=== PATIENT | female | born 1975 ===

== ENCOUNTER 2017-08-06 10:59 | Observation (INO) | payer BC ==
--- NOTE | 2017-08-06 09:44 | History and Physical Report ---
History of Present Illness Date of examination: 08/06/17 Date of admission: 08/06/2017 Chief complaint: heavy menses History of present illness: 42y/o with a history of symptomatic uterine fibroids. She reports worsening her menses. She has experienced cramping and pain with her menses. Pelvic ultrasound demonstrates an enlarged uterus with a dominant leiomyoma measuring 7.6cm. The patient elects for definitive surgical management. 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 Social history: - Obstetrical History : 2 Para: 2 Hx # Term Pregnancies: 2 Number of Pregnancies: 0 Spontaneous Abortions: 0 Induced : 0 Number of Living Children: 2 Medications and Allergies Allergies Allergy/AdvReac Type Severity Reaction Status Date / Time ibuprofen [From Advil] Allergy Red, itchy Verified 07/30/17 16:31 skin aleive Allergy Red, itchy Uncoded 07/30/17 16:31 skin Home Medications Medication Instructions Recorded Confirmed Last Taken Type Acetaminophen [Non-Aspirin Pain 500 mg PO PRN PRN 07/30/17 08/05/17 Unknown History Relief] Review of Systems All systems: negative Genitourinary: vaginal bleeding, pelvic pain - Vital Signs Vital signs: Vital Signs Temp Pulse Resp BP 98.5 F 74 18 150/88 07/31/17 13:00 07/31/17 13:00 07/31/17 13:00 07/31/17 13:00 Temp Pulse Resp BP Pulse Ox 98.5 F 74 18 150/88 07/31/17 13:00 07/31/17 13:00 07/31/17 13:00 07/31/17 13:00 - Physical Exam Breasts: Positive: deferred Cardiovascular: Regular rate Lungs: Positive: Clear to auscultation Abdomen: Positive: normal appearance Results All other labs normal. Assessment and Plan - Patient Problems (1) Leiomyoma Status: Acute Plan to address problem: scheduled for a robotic hysterectomy and bilateral salpingectomy (2) Menorrhagia Status: Acute (3) Dysmenorrhea Status: Acute
[~2017-08-06 10:59] MED LIST: ANCEF/STERILE WATER 2 GM/20 ML 2 GM/20 ML SYRINGE IV SCH
[2017-08-06] MEDS ORDERED: NACL BACTERIOSTATIC INFILTRATI ONE (11:13)
[2017-08-06] MEDS ORDERED: XYLOCAINE MPF 2% ONE (12:32)
[2017-08-06] MEDS ORDERED: ZEMURON IV ONE (12:32)
[2017-08-06] MEDS ORDERED: DIPRIVAN 10 MG/ML IV ONE (12:33)
[2017-08-06] MEDS ORDERED: SUBLIMAZE ONE (12:33)
[2017-08-06] MEDS ORDERED: GELFOAM POWDER 1GM MM ONE ×2 (12:45→14:18)
[2017-08-06] MEDS ORDERED: THROMBIN (BOVINE) TP ONE ×2 (12:45→14:18)
[2017-08-06] MEDS ORDERED: NEOSPORIN GU IR ONE ×2 (12:46→14:18)
[2017-08-06] MEDS ORDERED: LACTATED RINGERS 1,000 ML IV SCH (13:00)
[2017-08-06] MEDS ORDERED: TRANSDERM-SCOP TD ONE (13:12)
[2017-08-06] MEDS ORDERED: DECADRON ONE (13:50)
[2017-08-06] MEDS ORDERED: ZOFRAN ONE (13:50)
[2017-08-06] MEDS ORDERED: ROBINUL ONE (14:12)
[2017-08-06] MEDS ORDERED: BLOXIVERZ ONE (14:12)
[2017-08-06] MEDS ORDERED: NACL 0.9% IR ONE ×2 (14:18)
[2017-08-06] MEDS ORDERED: ePHEDrine 50 MG/5 ML-0.9% NACL IV ONE (14:41)
[2017-08-06] MEDS ORDERED: TYLENOL PO PRN (14:58)
[2017-08-06] MEDS ORDERED: AMBIEN PO PRN (14:58)
[2017-08-06] MEDS ORDERED: NARCAN 0.4 MG/1 ML IV PRN (14:58)
[2017-08-06] MEDS ORDERED: ZOFRAN IV PRN (14:58)
[2017-08-06] MEDS ORDERED: PERCOCET 5/325 PO PRN (14:58)
[2017-08-06] MEDS ORDERED: MILK OF MAGNESIA PO PRN (14:58)
--- NOTE | 2017-08-06 14:58 | Operative Report ---
Operative Report Operative Report: Date of surgery: 08/06/2017 Preoperative diagnoses: Symptomatic uterine fibroids; menorrhagia Postoperative diagnoses: Same as above Procedure: Robotic hysterectomy; bilateral salpingectomy Surgeon: Jade Perez M.D. [employer] Specialist: Trudy Gloria Anesthesia: Gen. endotracheal anesthesia Estimated blood loss: 50 mL Pathology: Leiomyoma, uterus, cervix, bilateral tubes Indication: 42-year-old 002 with a history of symptomatic uterine fibroids. The patient reports a history of significant menorrhagia and dysmenorrhea during her menses. She has elected to undergo definitive surgical management. Procedure: The patient was taken to the operating room and given general endotracheal anesthesia without complication. She is prepped and draped in a normal sterile fashion. A bivalve speculum was placed in the patient's vagina and a single- tooth tenaculum placed on the anterior lip of the cervix. The uterus was sounded with the uterine sound. A Are You a Human uterine manipulator was placed in the bivalve speculum was then removed. Attention was then turned to the patient's abdomen where a millimeter supra umbilical skin incision was then made. A Veress needle was placed and peritoneal entry was verified water-filled syringe. Insufflation of the peritoneal cavity was performed with CO2 gas. The 12 mm trocar was then placed under direct visualization. An additional 8 mm trocar was placed on the patient's left and right lateral side just opposite of the supraumbilical trocar. An additional 5 mm right lateral trocar was then placed as the accessory port. The patient was then placed in steep Trendelenburg. The da Albaro robot was then engaged. A fenestrated forcep was placed in arm 2 and a vessel sealer was placed in arm 1. The surgeon then transferred to the surgical console. General survey of the patient's abdomen and pelvis revealed an enlarged fibroid uterus. The uterus is approximately 14- 16 weeks size and globular. The tubes and ovaries were normal bilaterally. The mesosalpinx was then isolated on the right. The vessel sealer was used to coagulate the mesosalpinx which was then transected. The tube was transected from the ovary. The tubo-ovarian ligament was then coagulated and transected. The round ligament was then coagulated and transected also. The vesicouterine peritoneum was then entered from the patient's right side. The uterine vessels were then coagulated with the vessel sealer. The vessels were then transected . Attention was then turned to the patient's left side where the tubo-ovarian ligament and mesosalpinx were again isolated coagulated and transected. The vesical peritoneum was then entered from the left and joined in the midline. Peritoneum was reflected off of the lower uterine segment. Uterine vessels were then coagulated and then transected. The blood supply to the uterus was adequately contained. Secondary to the large size of the uterus a myomectomy had to be performed with the monopolar scissors. The serosa of the uterus was incised with the monopolar scissors. The leiomyoma was then excised from the uterine bed. A posterior colpotomy was made. The V care ring was visualized. Posterior colpotomy was created with the monopolar scissors. The incision was continued circumferentially until anterior colpotomy was made. The cervix and uterus were amputated from the vaginal cuff. The uterus was then removed along with the leiomyoma and tubes bilaterally through the vagina and a warm laparotomy sponge was placed and maintain the pneumoperitoneum. The vaginal cuff was then closed in a running fashion with V lock suture. Irrigation of the pelvis was performed. Gelfoam with thrombin was applied to the incision. The supraumbilical 12 mm trocar site was closed with the Kirill Ferro device. The skin was then reapproximated with 4-0 Monocryl. The tissue was sent to pathology which included the cervix and uterus. The patient was then successfully extubated. She was then taken to the recovery room in stable condition. All sponge laps and needle counts were correct x2.
[2017-08-06] MEDS ORDERED: D5LR 1,000 ML IV SCH (15:00)
[2017-08-06] MEDS: DILAUDID IV PRN ×3 (15:36→16:10)
[2017-08-06] MEDS ORDERED: DILAUDID ONE (15:37)
[2017-08-06] MEDS ORDERED: MORPHINE PCA 30MG/30ML IV SCH (16:00)
[2017-08-07 07:41] LABS: Hematocrit 29.3 % (30.3-42.9); Hemoglobin 9.6 gm/dl (10.1-14.3)
--- NOTE | 2017-08-07 08:49 | Progress Note ---
Assessment and Plan - Patient Problems (1) Leiomyoma Current Visit: No Status: Acute Plan to address problem: Patient doing well Discharge home once tolerates regular diet (2) Menorrhagia Current Visit: No Status: Acute (3) Dysmenorrhea Current Visit: No Status: Acute Subjective - Subjective Date of service: 08/07/17 Interval history: The patient is without any significant complaints. She reports being able to void after removal of her Moya. She has tolerated a clear diet without complication. Patient reports: appetite normal, voiding normally, pain well controlled Objective - Vital Signs Latest vital signs: Vital Signs Temp Pulse Resp Resp BP BP Pulse Ox 08/07/17 04:15 98.6 F 76 20 112/76 08/07/17 00:00 99.9 F H 83 20 101/63 08/06/17 20:10 98.4 F 87 20 117/74 08/06/17 18:30 20 08/06/17 17:32 20 08/06/17 17:23 20 08/06/17 17:20 98.6 F 76 20 111/73 08/06/17 16:40 18 08/06/17 16:30 98 F 74 14 121/75 100 08/06/17 16:15 74 10 L 124/76 100 08/06/17 16:10 16 08/06/17 16:06 16 08/06/17 16:00 73 17 135/76 100 08/06/17 15:46 16 08/06/17 15:45 63 16 141/79 100 08/06/17 15:36 16 08/06/17 15:30 68 16 152/83 100 08/06/17 15:25 72 15 135/80 100 08/06/17 15:20 62 15 151/86 100 08/06/17 15:15 98.5 F 79 19 147/87 100 08/06/17 12:58 77 16 145/91 100 08/06/17 12:53 77 16 155/94 100 08/06/17 12:48 76 16 148/91 100 08/06/17 12:43 76 18 143/86 100 08/06/17 11:50 98.8 F 80 18 128/82 99 08/06/17 11:30 98.8 F 80 18 128/82 99 Intake and Output 08/06/17 08/07/17 08/07/17 22:59 06:59 14:59 Intake Total 500 120 Output Total 660 1400 Balance -160 -1280 Intake: IV 500 Oral 120 Output: Urine 660 1400 Indwelling Catheter 1400 Uretheral (Moya) 180 Other: Total, Intake Amount 120 Total, Output Amount 600 Voiding Method Indwelling Catheter - Exam Breasts: Present: deferred Cardiovascular: Present: Regular rate Lungs: Present: Clear to auscultation Abdomen: Present: normal appearance Incision: Present: normal, dry - Labs Labs: Abnormal lab results 08/07/17 Range/Units 07:14 Hgb 9.6 L (10.1-14.3) gm/dl Hct 29.3 L (30.3-42.9) %
--- NOTE | 2017-08-07 08:51 | Discharge Summary ---
Providers - Providers Date of Admission: 08/06/17 14:59 Date of discharge: 08/07/17 Attending physician: CEDRICK SEPULVEDA Primary care physician: SUMMER PATEL MD Hospitalization Reason for admission: other (symptomatic uterine fibroids) Procedure: other (robotic hysterectomy and bilateral salpingectomy) Incision: normal Discharge diagnosis: other (symptomatic uterine fibroids) Hospital course: The patient was admitted the day of surgery and underwent a robotic hysterectomy and bilateral salpingectomy. Please see operative note for details of surgery. Postoperative course was unremarkable. Condition at discharge: Good Disposition: DC-01 TO HOME OR SELFCARE - Discharge Diagnoses (1) Leiomyoma Status: Acute (2) Menorrhagia Status: Acute (3) Dysmenorrhea Status: Acute Plan - Discharge Medications Prescriptions: Docusate Sodium [Colace] 100 mg PO BID PRN #60 capsule PRN Reason: Constipation Oxycodone HCl/Acetaminophen [Percocet 7.5/325 mg] 1 each PO Q6HR PRN #45 tablet PRN Reason: Pain - Provider Discharge Summary Activity: no sex for 6 weeks, no heavy lifting 4 weeks, no strenuous exercise Diet: routine Instructions: routine Additional instructions: [] Smoking cessation referral if applicable(refer to patient education folder for contact #) [] Refer to [facility] Booklet Call your doctor immediately for: * Fever > 100.5 * Heavy vaginal bleeding ( >1 pad per hour) * Severe persistent headache * Shortness of breath * Reddened, hot, painful area to leg or breast * Drainage or odor from incision. * Keep incision clean and dry at all times and follow doctor's instructions regarding bathing/showering Scheduled follow-up with Dr. Montero in 4 weeks - Follow up plan
[2017-08-07 13:28] VITALS: BP 109/58
== END 2017-08-07 12:00 | disposition home or self-care (01) ==
LOC: OR 10:59 → OB 14:59
PROVIDERS: ADMIT Obstetrics & Gynecology; ATTEND Obstetrics & Gynecology
DX: D21.9 Benign neoplasm of connective and other soft tissue, unspecified (principal); N92.0 Excessive and frequent menstruation with regular cycle
CPT/HCPCS: 36415; 58554; 64450; 85014; 85018; 86850; 86900; 86901; 88305; 88307; A4217; A4649; G0378; J0690; J1100; J1170; J2270; J2405; J2704; J2710; J3010; J7120; J7121; S2900; 88302

== ENCOUNTER 2020-08-23 06:03 | Day surgery (SDC) | payer BC ==
[2020-08-23] MEDS ORDERED: LACTATED RINGERS 1,000 ML IV SCH (06:30)
[2020-08-23] MEDS ORDERED: BACTERIOSTATIC SODIUM CHLORIDE 0.9% 30 ML VIAL INFILTRATI ONE (06:34)
[2020-08-23] MEDS ORDERED: BUPIVACAINE/PF (0.25%) 2.5 MG/ML 30 ML VIAL INFILTRATI ONE (07:01)
[2020-08-23] MEDS ORDERED: LIDOCAINE (1%) 10 MG/1 ML VIAL 20 ML MDV ONE (07:01)
[2020-08-23] MEDS ORDERED: DIBUCAINE 1% OINT 28 GM ONE (07:01)
[2020-08-23] MEDS ORDERED: MIDAZOLAM 2 MG/2 ML INJ ONE (07:06)
[2020-08-23] MEDS ORDERED: LIDOCAINE PF 100 MG/5 ML (CARDIAC SYRINGE) IV ONE (07:20)
[2020-08-23] MEDS ORDERED: propofoL 200 MG/20 ML VIAL IV ONE (07:20)
[2020-08-23] MEDS ORDERED: BUPIVACAINE/PF (0.5%) 5 MG/1 ML 30 ML VIAL INFILTRATI ONE ×2 (07:20→08:19)
[2020-08-23] MEDS ORDERED: fentaNYL 100 MCG/2 ML INJ ONE (07:20)
--- NOTE | 2020-08-23 07:25 | Anesthesia Day of Surgery ---
Anesthesia Day of Surgery - Day of Surgery Patient Examined: Yes Patient H&P Reviewed: Yes Patient is NPO: Yes
--- NOTE | 2020-08-23 07:26 | Anesthesia Consultation ---
Anesthesia Consult and Med Hx Date of service: 08/23/20 - Airway Anesthetic Teeth Evaluation: Good ROM Head & Neck: Adequate Mental/Hyoid Distance: Adequate Mallampati Class: Class I Intubation Access Assessment: Good - Pre-Operative Health Status ASA Pre-Surgery Classification: ASA1 Proposed Anesthetic Plan: General - Pulmonary Hx Smoking: No Hx Asthma: No COPD: No Hx Pneumonia: No Hx Sleep Apnea: No (JAZMINE PRE SCREEN NEGATIVE) - Cardiovascular System Hx Hypertension: No - Central Nervous System Hx Psychiatric Problems: No - Endocrine Hx End Stage Renal Disease: No - Hematic Hx Anemia: No - Other Systems Hx Cancer: No
[2020-08-23] MEDS ORDERED: HYDROmorphone 1 MG/1 ML INJ IV PRN ×2 (08:00)
[2020-08-23] MEDS ORDERED: MIDAZOLAM 2 MG/2 ML INJ IV NR (08:00)
[2020-08-23] MEDS ORDERED: SUCCINYLCHOLINE CHLORIDE 200 MG/10 ML INJ MDV ONE (08:00)
[2020-08-23] MEDS ORDERED: ONDANSETRON 4 MG/2 ML INJ IV PRN (08:00)
[2020-08-23] MEDS ORDERED: GLYCOPYRROLATE 0.4 MG/2 ML INJ ONE (08:06)
[2020-08-23] MEDS ORDERED: ONDANSETRON 4 MG/2 ML INJ ONE (08:06)
[2020-08-23] MEDS ORDERED: dexAMETHasone 20 MG/5 ML VIAL ONE (08:06)
[2020-08-23] MEDS ORDERED: PHENYLEPHRINE/NS 1,000 MCG/10 ML SYRINGE (OR USE) IV ONE (08:07)
[2020-08-23] MEDS ORDERED: LIDOCAINE (1%) 10 MG/1 ML VIAL 20 ML MDV INFILTRATI ONE (08:19)
[2020-08-23] MEDS ORDERED: SODIUM CHLORIDE 0.9% IRR 1,500 ML BOTTLE IR ONE (08:19)
[2020-08-23] MEDS ORDERED: HYDROmorphone 1 MG/1 ML INJ ONE (08:43)
[2020-08-23] MEDS ORDERED: DIBUCAINE 1% OINT 28 GM PR ONE (08:49)
--- NOTE | 2020-08-23 09:32 | Short Stay Summary ---
Short Stay Documentation Date of service: 08/23/20 - History Principal diagnosis: grade 3 hemorrhoids - Allergies and Medications Current Medications: Allergies ibuprofen [From Advil] Allergy (Verified 07/30/17 16:31) Red, itchy skin naproxen [From Naprosyn] Allergy (Verified 08/17/20 11:56) Itching Home Medications Medication Instructions Recorded Confirmed Last Taken Type No Known Home Medications [No 08/17/20 08/17/20 Unknown History Reported Home Medications] Active Medications Hydromorphone HCl (Hydromorphone 1 Mg/1 Ml Inj) 0.25 mg IV Q10MIN PRN PRN Reason: Pain, Moderate (4-6) Stop: 08/23/20 17:00 Hydromorphone HCl (Hydromorphone 1 Mg/1 Ml Inj) 0.5 mg IV Q10MIN PRN PRN Reason: Pain , Severe (7-10) Stop: 08/23/20 17:00 Lactated Ringer's (Lactated Ringers) 1,000 mls @ 125 mls/hr IV DIRECT SORIN Last Admin: 08/23/20 07:10 Dose: 125 mls/hr Documented by: Midazolam HCl (Midazolam 2 Mg/2 Ml Inj) 2 mg IV PREOP NR Stop: 08/23/20 23:59 Last Admin: 08/23/20 07:15 Dose: 2 mg Documented by: Ondansetron HCl (Ondansetron 4 Mg/2 Ml Inj) 4 mg IV ONCE PRN PRN Reason: Nausea And Vomiting Stop: 08/23/20 17:00 - Brief post op/procedure progress note Date of procedure: 08/23/20 Pre-op diagnosis: grade 3 hemorrhoids Post-op diagnosis: same Procedure: 2 Column hemorrhoidectomy Anesthesia: GETA, local Findings: Large prolapsed Grade 3 right anterior internal hemorrhoid with associated external hemorrhoidal tissue Small grade 2 right posterior internal hemorrhoid with associated external hemorrhoidal tissue Surgeon: ROBB HIDALGO Estimated blood loss: other (25cc) Pathology: list (hemorrhoid x2) Specimen disposition: to lab Condition: stable - Hospital course Hospital course: Pt observed in PACU and discharged to home in stable condition when criteria met - Disposition Condition at discharge: Good Disposition: DC-01 TO HOME OR SELFCARE Short Stay Discharge Plan Activity: no restrictions Diet: other (soft) Wound: per your surgeon's advice Additional Instructions: SEE PRINTED DISCHARGE INSTRUCTIONS Follow up with: SUMMER PATEL MD [Primary Care Provider] - 7 Days ROBB HIDALGO DO [Staff Physician] - 14 Days Prescriptions: Docusate Sodium [Colace] 100 mg PO BID #60 capsule polyethylene glycoL 3350 [Miralax 3350] 17 gm PO QDAY #10 packet HYDROcodone/APAP 5-325 [Thaxton 5/325] 1 each PO Q4HR PRN #30 tablet PRN Reason: Pain
[2020-08-23 09:49] VITALS: BP 146/96
--- NOTE | 2020-08-23 14:17 | Operative Report ---
Operative Report Operative Report: Date of procedure: 08/23/20 Pre-op diagnosis: grade 3 hemorrhoids Post-op diagnosis: same Procedure: 2 Column hemorrhoidectomy Anesthesia: GETA, local Findings: Large prolapsed Grade 3 right anterior internal hemorrhoid with associated external hemorrhoidal tissue Small grade 2 right posterior internal hemorrhoid with associated external hemorrhoidal tissue Surgeon: ROBB HIDALGO Estimated blood loss: other (25cc) Pathology: list (hemorrhoid x2) Specimen disposition: to lab Condition: stable Hospital course: Pt observed in PACU and discharged to home in stable condition when criteria met HPI and indication: 45 yo F with long standing history of grade 3 internal hemorrhoids refractory to medical management and hemorrhoid banding x2. Patient is a candidate for hemorrhoidectomy. Patient was evaluated in the surgery clinic. All risks, benefits, alternatives to surgery discussed with patient and questions answered. Consent obtained. Procedure in detail: Patient identified in the preoperative area and was taken back to the operating room. Anesthesia was induced on the patient stretcher and then she was transferred to the OR table in prone position. All bony prominences were padded appropriately and as per protocol. The patient's buttocks were taped apart and she was placed in reverse jackknife position. The rectum and perirectal area was prepped and draped in usual sterile fashion a timeout performed. A rectal exam under anesthesia was performed. A fansler retractor was gently placed in the rectum and the rectum was examined circumferentially. The patient had 2 large internal hemorrhoid columns with external hemorrhoidal tissue. A large prolasped hemorrhoid was localized to the right anterior location and a grade 2 hemorrhoid at the right posterior location. I started with the right anterior hemorrhoid. The apex of the hemorrhoid was identified and ligated using a 2-0 Vicryl interrupted stitch. The suture was left intact for reapproximating the mucosa. The anorectal skin associated with the hemorrhoid was scored with the 15 blade and then using a hand-held harmonic scalpel the internal hemorrhoid column was dissected from the underlying muscle with great care to preserve the underlying muscle. The dissection was taken down to the suture ligature at the apex and then the hemorrhoid transected. The hemorrhoid was passed off the table as a specimen. The wound bed was checked for hemostasis which was carefully ensured. The rectal mucosa was then reapproximated using the 2-0 Vicryl stitch in a running fashion. I then turned my attention to the right posterior hemorrhoid complex. This was excised in the same fashion. The anorectal skin was reapproximated with interrupted 3-0 chromic sutures with a small skin opening left to allow for drainage. The rectum was checked for hemostasis. This was very carefully ensured. The rectum was irrigated. Local anesthetic was infiltrated into all 4 quadrants of the perirectal tissue. A Surgifoam gauze coated with dibucaine was inserted into the rectum. The skin was cleansed and a 4 x 4 gauze was used to cover the rectum, covered by ABD pad, and secured with mesh underwear. At the end of the case all sponge, instrument, sharp counts were correct x2. The patient was awoken from anesthesia and transferred back to the stretcher in supine position. She was extubated and taken to PACU in stable condition.
--- NOTE | 2020-08-23 18:17 | Post Anesthesia Evaluation ---
- Post Anesthesia Evaluation Patient Participated: Yes Airway Patent: Yes Stable Respiratory Function: Yes Nausea/Vomiting: No Temp > 96.8F: Yes Pain Manageable: Yes Adequeate Hydration: Yes Anesthesia Complications: No Block Receding Appropriately: Not Applicable Patient on Ventilator: No
== END 2020-08-23 10:15 | disposition home or self-care (01) ==
LOC: OR 06:03
PROVIDERS: ATTEND Surgery
DX: K64.2 Third degree hemorrhoids (principal); Z20.822 Contact with and (suspected) exposure to COVID-19; N92.0 Excessive and frequent menstruation with regular cycle; N94.6 Dysmenorrhea, unspecified; Z88.8 Allergy status to other drugs, medicaments and biological substances; Z79.899 Other long term (current) drug therapy; Z90.710 Acquired absence of both cervix and uterus; Z98.890 Other specified postprocedural states
CPT/HCPCS: 46260; 88304; J0330; J1100; J1170; J2001; J2250; J2370; J2405; J2704; J3010; J7120; U0003